=== PATIENT | female | born 1955 | race Two or more races ===

== ENCOUNTER 2021-10-02 10:00 | Outpatient (CLI) | payer OTHER | END 2021-10-02 10:26 | disposition home or self-care (01) | LOC: LAB 10:00 | PROVIDERS: ATTEND Surgery | DX: K40.20 Bilateral inguinal hernia, without obstruction or gangrene, not specified as recurrent (principal); Z01.818 Encounter for other preprocedural examination ==

== ENCOUNTER 2021-10-18 05:45 | Day surgery (SDC) | payer OTHER ==
[~2021-10-18] VITALS: Ht 172.7 cm; Wt 53.5 kg
[~2021-10-18 05:45] MED LIST: CARDURA1 MG PO; COZAAR50 MG PO; ELIQUIS5 MG PO; FLECAINIDE ACET50 MG PO; NORVASC5 MG PO; PROTONIX40 M1 PO; TOPROL XL25 M1 PO; [UNRECOGNIZED DRUG - OTHER] PO
[2021-10-18] MEDS ORDERED: PERCOCET 5-3251 EACH PO (10:01)
[2021-10-18] MEDS ORDERED: NEURONTIN600 M1 PO (10:01)
[2021-10-18] MEDS ORDERED: POLY119PG PO (10:03)
== END 2021-10-18 11:35 | disposition home or self-care (01) ==
LOC: CIR.AMB 05:45
PROVIDERS: ATTEND Surgery
DX: K40.20 Bilateral inguinal hernia, without obstruction or gangrene, not specified as recurrent (principal); Z20.822 Contact with and (suspected) exposure to COVID-19; I48.91 Unspecified atrial fibrillation; I10 Essential (primary) hypertension; J45.909 Unspecified asthma, uncomplicated; G43.909 Migraine, unspecified, not intractable, without status migrainosus; Z79.01 Long term (current) use of anticoagulants

== ENCOUNTER 2022-08-09 09:35 | Emergency (ER) | payer OTHER ==
[~2022-08-09] VITALS: Ht 172.7 cm; Wt 53.5 kg
[~2022-08-09 09:35] MED LIST changes: +NEURONTIN600 M1 PO; +PERCOCET 5-3251 EACH PO; +POLY119PG PO
[2022-08-09] MEDS ORDERED: XOPENEX0.63 MG/3 IH (10:02)
== END 2022-08-09 15:05 | disposition home or self-care (01) ==
LOC: ER 09:35
DX: R10.9 Unspecified abdominal pain (principal); Z87.442 Personal history of urinary calculi; N20.0 Calculus of kidney; K59.00 Constipation, unspecified; N40.0 Benign prostatic hyperplasia without lower urinary tract symptoms; I49.8 Other specified cardiac arrhythmias; I10 Essential (primary) hypertension